=== PATIENT | male | born 1930 | race Caucasian/White ===

== ENCOUNTER 2017-04-19 17:18 | Outpatient (CLI) | END 2017-04-19 17:19 | LOC: AMBL 17:18 | PROVIDERS: ATTEND Family Medicine | DX: E11.649 Type 2 diabetes mellitus with hypoglycemia without coma (principal); R40.4 Transient alteration of awareness; G20 Parkinson's disease; F03.90 Unspecified dementia, unspecified severity, without behavioral disturbance, psychotic disturbance, mood disturbance, and anxiety ==

== ENCOUNTER 2017-10-26 16:23 | Outpatient (CLI) | END 2017-10-26 16:24 | disposition home or self-care (01) | LOC: NONPT 16:23 | PROVIDERS: ATTEND Family Medicine | DX: R50.9 Fever, unspecified (principal); R52 Pain, unspecified | CPT/HCPCS: 87502 ==

== ENCOUNTER 2017-11-26 19:25 | Outpatient (CLI) | END 2017-11-26 19:26 | disposition home or self-care (01) | LOC: NONPT 19:25 | PROVIDERS: ATTEND Family Medicine | DX: N39.0 Urinary tract infection, site not specified (principal) | CPT/HCPCS: 81001; 87086 ==

== ENCOUNTER 2018-01-20 10:19 | Outpatient (CLI) | END 2018-01-20 10:20 | disposition home or self-care (01) | LOC: NONPT 10:19 | PROVIDERS: ATTEND Family Medicine | DX: R41.82 Altered mental status, unspecified (principal); R30.0 Dysuria | CPT/HCPCS: 81001 ==